=== PATIENT | female | born 1970 | race Hispanic/Latino ===

== ENCOUNTER 2019-04-15 09:21 | Emergency (ER) | payer BC ==
[~2019-04-15] VITALS: Ht 162.6 cm; Wt 69.9 kg
[~2019-04-15 09:21] MED LIST: LOSARTAN POTAS100 MG PO; [UNRECOGNIZED DRUG - OTHER]
--- OUTSIDE RECORDS SUMMARY | 2019-04-15 09:24 | XMS REPORT | CCD ---
Author Author Auto Generated Organization [facility] Address Unknown Phone Unavailable Care Team Providers Care Manager Sourcing Name Role Phone Sebastien Sagastume CP [phone] Allergies, Adverse Reactions, Alerts Substance Reaction Status No Known Allergies Active Problem List Condition Effective Dates Status Ectopic Active Hypertension Active Medications Medication Instructions Start Date End Date Status amlodipine 10 mg 10 mg=1 tabs, Oral, Daily, 0 05/19/2014 06/02/2014 Ordered oral tablet Refill(s) LR 1,000 mL 1,000 mL, IV, 100 mL/hr, start date 05/20/2014 05/20/2014 Discontinued 05/20/14 8:12:00 CDT, For Adults lidocaine 1% 0.5 mL, Injection, Subcutaneous, 05/20/2014 05/20/2014 Canceled injectable solution Once, first dose 05/20/14 9:00:00 CDT, stop date 05/20/14 9:00:00 CDT labetalol 5 mg=1 mL, Injection, IV Push, 05/20/2014 05/20/2014 Discontinued q5min PRN for hypertension, order duration: 4 doses, first dose 05/20/14 9:07:00 CDT, stop date Limited # of times morphine 1 mg, IV Push, q5min PRN for Pain 05/20/2014 05/20/2014 Discontinued Moderate (4-6), order duration: 5 doses, first dose 05/20/14 9:07:00 CDT, stop date Limited # of times morphine 2 mg, IV Push, q5min PRN for pain 05/20/2014 05/20/2014 Completed severe (7-10), order duration: 5 doses, first dose 05/20/14 9:07:00 CDT, stop date Limited # of times albuterol 2.5 mg/3 2.5 mg=3 mL, Soln, NEB, Once, first 05/20/2014 05/20/2014 Ordered mL (0.083%) dose 05/20/14 10:00:00 CDT, stop inhalation solution date 05/20/14 10:00:00 CDT fentaNYL 50 mcg=1 mL, Injection, IV Push, 05/20/2014 05/20/2014 Discontinued q5min PRN for Pain Mild (1-3), order duration: 2 doses, first dose 05/20/14 9:07:00 CDT, stop date Limited # of times Demerol HCl 12.5 mg=0.5 mL, Injection, IV Push, 05/20/2014 05/20/2014 Discontinued q5min PRN for shivers, order duration: 4 doses, first dose 05/20/14 9:07:00 CDT, stop date Limited # of times hydrALAZINE 5 mg=0.25 mL, Injection, IV Push, 05/20/2014 05/20/2014 Discontinued q5min PRN for hypertension, order duration: 4 doses, first dose 05/20/14 9:07:00 CDT, stop date Limited # of times calcium (as 1 tabs, Oral, Daily, 0 Refill(s) 04/26/2014 05/10/2014 Ordered carbonate)-vitamin D 500 mg-200 intl units oral tablet vitamin E 1000 intl 1,000 IntUnit=1 caps, Oral, Daily, 04/26/2014 05/10/2014 Ordered units oral capsule 0 Refill(s) lidocaine 5 mL, Injection, IV, Once, first 05/20/2014 05/20/2014 Completed dose 05/20/14 8:44:00 CDT, stop date 05/20/14 8:44:00 CDT propofol 200 mg=20 mL, Emulsion, IV, Once, 05/20/2014 05/20/2014 Completed first dose 05/20/14 8:44:00 CDT, stop date 05/20/14 8:44:00 CDT dexamethasone 12 mg=3 mL, Injection, IV, Once, 05/20/2014 05/20/2014 Completed first dose 05/20/14 9:23:00 CDT, stop date 05/20/14 9:23:00 CDT Misc Medication 400 mL, Soln-IV, IV, Once, first 05/20/2014 05/20/2014 Completed dose 05/20/14 9:38:00 CDT, stop date 05/20/14 9:38:00 CDT midazolam 4 mg=4 mL, Injection, IV, Once, 05/20/2014 05/20/2014 Completed first dose 05/20/14 8:34:00 CDT, stop date 05/20/14 8:34:00 CDT fentaNYL 100 mcg=2 mL, Injection, IV, Once, 05/20/2014 05/20/2014 Completed first dose 05/20/14 8:34:00 CDT, stop date 05/20/14 8:34:00 CDT rocuronium 20 mg=2 mL, Injection, IV, Once, 05/20/2014 05/20/2014 Completed first dose 05/20/14 8:44:00 CDT, stop date 05/20/14 8:44:00 CDT ondansetron 4 mg=2 mL, Injection, IV, Once, 05/20/2014 05/20/2014 Completed first dose 05/20/14 8:34:00 CDT, stop date 05/20/14 8:34:00 CDT Vital Signs Most recent to oldest [Reference Range]: 1 2 3 Temperature Oral [35.8-37.3 DegC] 36.5 DegC (05/20/2014 08:22:00) Temperature Tympanic [36.6-38.1 DegC] 36.2 DegC *LOW* (05/20/2014 09:30:00) Peripheral Pulse Rate [55-105 bpm] 54 bpm *LOW* (05/20/2014 08:22:00) Heart Rate Monitored [60-100 bpm] 59 bpm *LOW* (05/20/2014 10:00:00) 58 bpm *LOW* (05/20/2014 09:55:00) 59 bpm *LOW* (05/20/2014 09:50:00) Respiratory Rate [12-20] 12 (05/20/2014 10:00:00) 11 *LOW* (05/20/2014 09:55:00) 15 (05/20/2014 09:50:00) SpO2 [90-100 %] 98 % (05/20/2014 10:00:00) 97 % (05/20/2014 09:55:00) 97 % (05/20/2014 09:50:00) Systolic Blood Pressure [110-120 mmHg] 126 mmHg *HI* (05/20/2014 10:00:00) 116 mmHg (05/20/2014 09:55:00) 123 mmHg *HI* (05/20/2014 09:50:00) Diastolic Blood Pressure [65-85 mmHg] 81 mmHg (05/20/2014 10:00:00) 77 mmHg (05/20/2014 09:55:00) 79 mmHg (05/20/2014 09:50:00) Mean Arterial Pressure, Cuff 96 mmHg (05/20/2014 10:00:00) 90 mmHg (05/20/2014 09:55:00) 93.7 mmHg (05/20/2014 09:50:00) Height 162 cm (05/19/2014 18:08:00) Height/Length Dosing 162 cm (05/19/2014 18:08:00) Height Inches 64 in (05/19/2014 18:08:00) Weight 71.7 kg (05/19/2014 18:08:00) Weight Dosing 71.7 kg (05/19/2014 18:08:00) Weight Pounds 158 lb (05/19/2014 18:08:00) Body Mass Index 27.32 kg/m2 (05/19/2014 18:08:00)
--- OUTSIDE RECORDS SUMMARY | 2019-04-15 09:24 | XMS REPORT | Encounter Summary ---
Author Organization Unknown Address [address] [place] [address] Phone [phone] Care Team Providers Care Sample Shoe Inspector And Reworker Name Role Phone Dr. Vamshi Yañez 3 [phone] Jannie Villanueva MD 3 [phone] Reason for Visit Bilateral neck pain; Right shoulder pain Instructions 1. Immunization Fluzone Quad 2018-(PF) 60 mcg(15 mcgx4)/0.5 mL intramuscular syringe 2. Spasm of back muscles cyclobenzaprine 10 mg tablet dexamethasone 4 mg/mL injection solution triamcinolone acetonide 40 mg/mL suspension for injection hydrocodone 10 mg-acetaminophen 325 mg tablet meloxicam 15 mg tablet 3. Benign essential hypertension Discussion Note D/w pt get the TDAP 1 month later. Pt was encouraged to take her Losartan barbi when she gets home. f/u in 12 mth with pcp for routine check up Patient educational handouts: No information available. Plan of Care Reminders Provider Appointments Est Patient on or around 10/31/2018 Ludin Phillips MD Lab None recorded. Referral None recorded. Procedures None recorded. Surgeries None recorded. Imaging None recorded. Medications Name Start Date cyclobenzaprine 10 mg tablet Take 1 tablet twice a day by oral route for 10 days. No alcohol or driving when on this medicine dexamethasone 4 mg/mL injection solution Take 4 mg by injection route for 1 day. hydrocodone 10 mg-acetaminophen 325 mg tablet Take 1 tablet twice a day by oral route for 10 days. no alcohol or driving when on this medicine losartan 100 mg tablet Take 1 tablet every day by oral route. meloxicam 15 mg tablet Take 1 tablet every day by oral route with meals for 30 days. start from Sep triamcinolone acetonide 40 mg/mL suspension for injection Take 40 mg by injection route. Vivelle-Dot 0.1 mg/24 hr transdermal patch Apply 1 patch twice a week by transderm. route for 28 days. Medications Administered Name Date dexamethasone 4 mg/mL injection solution Take 4 mg by injection route for 1 day. 8426-32-43D70:28:00 triamcinolone acetonide 40 mg/mL suspension for injection Take 40 mg by injection route. 9265-29-98K08:29:00 Vitals Height Weight BMI Blood Pressure 5 ft 4 in 168.8 lbs 29 kg/m2 (1) 140/96 mm[Hg] (2) 144/100 mm[Hg] Lab Results None recorded. Allergies Code Code System Name Reaction Severity Status Onset Insect Venom Anaphylaxis Moderate to Severe Active 6901 RxNorm Methylprednisolone Active Problems Name Status Onset Date Source Headache Active 03/11/2018 Abnormal Cervical Papanicolaou Smear Active 03/11/2018 Hormone Replacement Therapy Active 03/11/2018 Hypertensive Disorder Active Procedures Date Name Performed by 08/05/2016 Orthopedic Surgery Information not available 08/05/2015 ENT Surgery (Ear, Nose, Throat) Information not available 08/05/2007 Hysterectomy (Partial) Information not available 08/05/2004 Caesarean Section Information not available 08/05/2004 Orthopedic Surgery Information not available 08/05/2003 Tubal Ligation Information not available 08/05/1988 Gastrointestinal Surgery Information not available Vaccine List Vaccine Type influenza, injectable, quadrivalent, preservative free 09/03/20180.5 mL Social History Smoking Status Never Smoker Past Encounters 09/03/2018 Immunization; Spasm of Back Muscles; Benign Essential Hypertension Ludin Phillips MD: [address] [place] [phone], Ph. History of Present Illness Note:Here with because she woke up with neck pain & its radiating to Rt shoulder & Pain down her back . no weakness or numbness in hands or legs , no incontinence of bowel or bladder, moved things from storage uit on , she was c/o soreness all over on , Took 5 aleve yesterday - , pain /10 , no help with aleve<div>Not taking any BP meds x 2 days . no fever or chills</div><div>
</div> Review of Systems:ROS as noted in the HPI Review of Systems None recorded. Physical Exam General Adult Exam (Female) Reported By: Patient Constitutional: General Appearance: well-developed; bmi - 29. Level of Distress: moderate distress. Ambulation: ambulating normally Psychiatric: Insight: good judgement. Mental Status: active and alert, normal mood, normal affect. Orientation: to time, to place, to person Head: Head: normocephalic, atraumatic Eyes: Lids and Conjunctivae: non-injected, no discharge, no pallor. Pupils: PERRLA. Corneas: grossly intact. EOM: EOMI. Lens: clear. Sclerae: non-icteric ENMT: Ears: no lesions on external ear, EACs clear, TMs clear. Hearing: no hearing loss. Nose: no lesions on external nose, nares patent, no septal deviation, nasal passages clear, no sinus tenderness, no nasal discharge. Lips, Teeth, and Gums: no mouth or lip ulcers, no bleeding gums, normal dentition. Oropharynx: moist mucous membranes, no erythema, no exudates, tonsils not enlarged Neck: Neck: supple, trachea midline, no masses, FROM. Lymph Nodes: no cervical LAD, no supraclavicular LAD, no axillary LAD. Thyroid: no enlargement, non- tender, no nodules Lungs: Respiratory effort: no dyspnea. Auscultation: breath sounds normal, good air movement, CTA except as noted, no wheezing, no rales/crackles, no rhonchi Cardiovascular: Heart Auscultation: RRR, normal S1, normal S2, no murmurs, no rubs, no gallops Abdomen: Bowel Sounds: normal. Inspection and Palpation: soft, no tenderness, no guarding, no rebound tenderness, no masses, no CVA tenderness. Liver: non- tender, no hepatomegaly Musculoskeletal:: Motor Strength and Tone: normal motor strength, normal tone. Joints, Bones, and Muscles: normal movement of all extremities, no bony abnormalities, no contractures, no malalignment, no tenderness. Extremities: no cyanosis, no edema, no varicosities Neurologic: Gait and Station: normal gait, normal station; walking stiffly & straight. Cranial Nerves: grossly intact. Sensation: grossly intact. Reflexes: DTRs 2+ bilaterally throughout; strength - 4+/5 in evita upper extremities due to pain & 5/5 in both lower extremities. Coordination and Cerebellum: no tremor Skin: Inspection and palpation: no rash, no lesions, no abnormal nevi, good turgor, no jaundice. Nails: normal Back: Thoracolumbar Appearance: normal curvature; spasm of evita suprascapular , evita interscapular , evita paravertebral in thoracic & evita lumbar paravertebral muscle spasm + flrxion 15 degrees , ext 5 degrees evita lat flexion 15 degrees with discomfort limiting her motion Notes: Very stiff & sitting up right with minimal movement in her neck as her upper back &spine hurts.
--- OUTSIDE RECORDS SUMMARY | 2019-04-15 09:24 | XMS REPORT | Encounter Summary ---
Author Organization Unknown Address [address] [place] [address] Phone [phone] Reason for Visit Medical Complaint Instructions 1. Streptococcal sore throat rapid strep group A, throat amoxicillin 875 mg tablet strep throat: care instructions 2. Acute upper respiratory infection Bromfed DM 2 mg-30 mg-10 mg/5 mL syrup fluticasone 50 mcg/actuation nasal spray,suspension upper respiratory infection (cold): care instructions Discussion Note: None recorded. Plan of Care Patient Instructions Please drink plenty of fluids, rest, good hand washing, cover your mouth while coughing and sneezing. Change out yourtoothbrush tomorrow or when you start to feel better. Try warm salt water gargles, throat lozanges, soups ortea with honey and/or lemon juice to soothe the throat.Take ibuprofen or tylenol every 6 hours as needed for fever and aches. Please read all the side effects of the medications, if you develop any side effects immediately stop the medication and please contact your PCP/UC/ER or [facility] or call 911. Patient verbalizes understanding and agrees to the plan. Reminders Provider Appointments None recorded. Lab Rapid Strep Group a, Throat 04/25/2016 [facility] Referral None recorded. Procedures None recorded. Surgeries None recorded. Imaging None recorded. Medications Name Start Date acetaminophen 300 mg-codeine 30 mg tablet amlodipine 5 mg tablet amoxicillin 875 mg tablet Take 1 tablet twice a day by oral route with meals for 10 days. Bromfed DM 2 mg-30 mg-10 mg/5 mL syrup Take 10 mL every 8 hours by oral route as needed for cough. [id number]-xbnsetdlwqoip-bdnqahqd 50 mg-325 mg-40 mg tablet ciprofloxacin 250 mg tablet clobetasol 0.05 % topical cream EpiPen 2-Valentín 0.3 mg/0.3 mL injection, auto-injector fluticasone 50 mcg/actuation nasal spray,suspension Inhale 2 sprays to each nostrils once a day.. Soledad 08/24 (21) 1 mg-20 mcg tablet ibuprofen 600 mg tablet prednisone 50 mg tablet propranolol 60 mg tablet zolpidem 10 mg tablet Medications Administered None recorded. Vitals Height Weight BMI Blood Pressure 5 ft 4 in 160 lbs 27.5 124/82 Lab Results Date Name Result Description Value Range Status Rapid Strep Group a, Throat Result positive Swab Location Left and Right tonsillar pillars Allergies Name Reaction Severity Onset NKDA Problems Name Status Onset Date Source Streptococcal Sore Throat Active Encounter Acute Upper Respiratory Infection Active Encounter Procedures Date Name Performed by Cholecystectomy Information not available Hysterectomy Information not available Vaccine List Vaccine Type influenza, seasonal, injectable 05/04/2015 Social History Smoking Status Never Smoker Past Encounters 04/25/2016 Streptococcal Sore Throat; Acute Upper Respiratory Infection Catie Amaya [facility]: [address] [facility], [place] [address], Ph. History of Present Illness [id number] Reported By: Patient HPI: Location: head/sinuses, throat. Quality: productive cough, sore throat, nasal/sinus congestion, dry cough. Duration: 2days. Severity: moderate. Onset/Timing: sudden. Context: no sick contacts, no foreign travel, non-smoker. Modifying factors: OTC medication. Associated Symptoms: no sputum production, no shortness of breath, no wheezing, no change in number of pillows needed to sleep at night, no sweats, no significant weight gain, no significant weight loss, no morning cough, no sore throat, no vomiting, no diarrhea, no rash, no nausea Notes: Pt also reports low grade fever and right ear pain. Review of Systems Basic Reported By: Patient Constitutional: Constitutional: fever Eyes: Eyes: no eye complaints Mmdl-Rsju-Ylldg-Throat: Ears: ear pain. Nose: nose/sinus problems. Mouth/Throat: no bleeding gums, no mouth complaints, no teeth problems, sore throat Cardiovascular: Cardiovascular: no chest pain, no shortness of breath, no known heart murmur Respiratory: Respiratory: no wheezing, no shortness of breath, cough Gastrointestinal: Gastrointestinal: no abdominal pain, no vomiting / diarrhea Genitourinary: Genitourinary: no urinary complaints, no discharge Musculoskeletal: Musculoskeletal: no muscle weakness, no arthralgias/joint pain, no back pain, muscle aches Skin: Skin: no abnormal / changing mole, no jaundice, no rashes Neurologic: Neurologic: no loss of consciousness, no weakness, no numbness, no seizures, no dizziness, headache Physical Exam Adult Basic, Adult Female Complete Constitutional: General Appearance: healthy-appearing, well-nourished, well-developed. Level of Distress: NAD. Ambulation: ambulating normally Psychiatric: Mental Status: active and alert. Orientation: to time, to place, to person Eyes: Lids and Conjunctivae: non-injected, no discharge, no pallor. Pupils: PERRLA. EOM: EOMI. Lens: clear. Sclerae: non-icteric Ymw-Eaup-Jladz-Throat: Ears: no lesions on external ear, no outer ear tenderness, EACs clear, TMs clear. Hearing: no hearing loss. Nose: no lesions on external nose, nares patent, no septal deviation, nasal passages clear, no sinus tenderness, nasal discharge--rhinorrhea, post nasal drip. Lips, Teeth, and Gums: no mouth or lip ulcers, no bleeding gums, normal dentition. Oropharynx: moist mucous membranes, erythema, exudates, tonsils enlarged 2+ Neck: Neck: supple. Lymph Nodes: no cervical LAD Lungs: Respiratory effort: no dyspnea, no tachypnea. Auscultation: breath sounds normal Cardiovascular: Heart Auscultation: RRR, no murmurs Neurologic: Gait and Station: normal gait Skin: Inspection and palpation: no rash
--- OUTSIDE RECORDS SUMMARY | 2019-04-15 09:24 | XMS REPORT ---
Author Author [facility] Address Unknown Phone Unavailable Care Team Providers Care Side Laster Staple Name Role Phone Tameka CHAPIN Unavailable Unavailable Problems This patient has no known problems. Allergies, Adverse Reactions, Alerts This patient has no known allergies or adverse reactions. Medications This patient has no known medications. Results Test Description Test Time Test Comments Text Results Atomic Results Result Comments SCR MAMM BILATERAL PETER CAD DIGITAL 2018-11-27 12:55:08 - SCR MAMM BILATERAL PETER CAD DIGITALBILATERAL DIGITAL SCREENING MAMMOGRAM 3D/2D WITH CAD: 11/20/2018CLINICAL: Asymptomatic. Digital breast tomosynthesis was performed in addition to routine CC and MLO views. Current mammographic images were evaluated by either a K[employer] Audio M-Vu or a Lightning Gaming ImageChecker CAD (computer aided detection system). Comparison is made to exam dated 02/26/2017 mammogram - [facility] [place]. There are scattered fibroglandular tissues in both breasts. No suspicious mass, architectural distortion, malignant type calcification, or lymph node abnormality detected. Breast architecture is stable compared to prior exams.IMPRESSION: NEGATIVEThere is no mammographic evidence of malignancy. Resume annual screening mammography in one year. Mal Charles M.D. ss/penrad:11/27/2018 12:55:08 Salesperson Art Objects: [employer] [place], [facility]-FWletter sent: BIRADS 1-2 Normal Mammogram BI-RADS: 1 Negative KNEE RIGHT THREE VIEWS [place] [address] Patient Name: GABRIEL GOLDBERG MR #: [id number] : 1970 Age/Sex: 46/F Req #: [id number] Adm Physician: Ordered by: GONZALEZ CHAPIN MD Report #: [id number] Location: ER Room/Bed: Procedure: [id number] DX/KNEE RIGHT THREE VIEWS Exam Date: 05/26/17 Exam Time: 909 REPORT STATUS: Signed EXAMINATION: KNEE RIGHT THREE VIEWS 05/26/2017 9:05 AM COMPARISON: None INDICATION: Pop in knee while walking. Right knee pain. DISCUSSION: 3 views of the right knee (AP, lateral, and oblique) No fracture or dislocation. Mild sharpening of the tibial spines. Mild narrowing of the medial and patellofemoral joint space. 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 No acute abnormality. Velma Nelson MD Signed by: Dr. Velma Nelson MRicardo on 05/26/2017 10:39 AM Dictated By: VELMA NELSON MD 1039 Transcribed By: SUSHMA on 05/26/17 1039 COPY TO: GONZALEZ CHAPIN MD
--- OUTSIDE RECORDS SUMMARY | 2019-04-15 09:24 | XMS REPORT | Encounter Summary ---
Author Organization Unknown Address [address] [place] [address] Phone [phone] Care Team Providers Care Dry Roller Name Role Phone Dr. Jannie Villanueva 3 [phone] Jannie Villanueva MD 3 [phone] Reason for Visit Hypertensive disorder; Hormone replacement therapy Instructions 1. Hypertensive disorder lisinopril 40 mg tablet 2. Hormone replacement therapy 3. Body mass index 25-29 - overweight learning about healthy weight 4. Immunization Adacel (Tdap Adolesn/Adult)(PF)2 Lf-(2.5-5-3-5)-5 Lf/0.5 mL IM syringe 5. Screening for malignant neoplasm of colon colonoscopy referral - PLEASE FAX NOTES TO [phone]. 6. Screening mammography MAMMO, screening, digital, bilateral - PLEASE CALL PATIENT AND SCHEDULE HER AN APPOINTMENT. PLEASE FAX RESULTS TO [phone]. mammogram: about this test 7. Insomnia zolpidem 10 mg tablet Discussion Note: None recorded. Plan of Care Reminders Provider Appointments Est Patient 12/23/2018 9:30AM Jannie Villanueva MD Lab None recorded. Referral Colonoscopy Referral 10/28/2018 Lindsay Ellis MD Procedures None recorded. Surgeries None recorded. Imaging MAMMO, Screening, Digital, Bilateral 10/28/2018 [facility] Medications Name Start Date lisinopril 40 mg tablet Take 1 tablet every day by oral route. losartan 100 mg tablet Take 1 tablet every day by oral route. Nexium Vivelle-Dot 0.1 mg/24 hr transdermal patch Apply 1 patch twice a week by transderm. route for 28 days. zolpidem 10 mg tablet Take 1 tablet every day by oral route as needed. Medications Administered None recorded. Vitals Height Weight BMI Blood Pressure 5 ft 4 in 167 lbs 28.7 kg/m2 (1) 144/96 mm[Hg] (2) 140/94 mm[Hg] Lab Results None recorded. Allergies Code Code System Name Reaction Severity Status Onset Insect Venom Anaphylaxis Moderate to Severe Active 1249 RxNorm Methylprednisolone Active Problems Name Status Onset [...] available 08/05/1988 Gastrointestinal Surgery Information not available 10/28/2018 MAMMO, Screening, Digital, Bilateral [facility] [address] [facility] [address] [place] [address] (Work Place) Vaccine List Vaccine Type influenza, injectable, quadrivalent, preservative free 09/03/20180.5 mL Tdap 10/28/20180.5 mL Social History Smoking Status Never Smoker Past Encounters 10/28/2018 Hypertensive Disorder; Hormone Replacement Therapy; Body Mass Index 25-29 - Overweight; Immunization; Screening for Malignant Neoplasm of Colon; Screening Mammography; Insomnia Jannie Villanueva MD: [address] [place] [address], Ph. History of Present Illness Note:48yo female presents for three month follow-up visit. Here today to update referrals for mammogram & colonoscopy/GI. Pt notes that she didn't have the time to leave work to get these done previously, but resigned from her current job last week & now would like to get caught up.<div>Would like to see GI & amp; discuss colonoscopy & possible upper endoscopy. Has notice a strange 'gurgling' sound in throat unrelated to eating. Occurs intermittently for past 3wks. Pt also has persistent heartburn despite using OTC Nexium 2-3x/wk. No nausea, vomiting, blood in stool. Some constipation. Had colonoscopy about 2011. Mat GF with colon cancer.</div><div>
</div><div>PMHx:
</div><div> Hypertension - on medication for past 5 yrs.</div><div>ERT - Started Vivelle Dot Patch about 12/2017 from MD Meng castellanose. Pt had partial hysterectomy at age 37 for fibroids & ovarian cyst. Only has cervix & followed by gyne at [facility] annually - last visit December 2017. Was never on HRT for 10yrs following hysterectomy. Spent years trying to resolve menopausal symptoms with natural remedies, until started on Vivelle last December 2017.
</div><div>ASCUS - atypical squamous cells of cervix.
</div><div>Headaches - saw neurologist 4yrs ago for 'cyst in brain'. Awaiting appt with Dr. Jazzy García, neurology for headaches.

</div><div>
</div><div>Bradycardia - was seen by cardiology in past.
</div><div>
</div><div>NKDA, but highly allergic to ant bites (anaphylaxis - carries EpiPen).
</div><div>Nonsmoker. Last mammo 03/05/17. Had colonoscopy in 2011.
</div><div>
</div> Review of Systems:ROS as noted in the HPI Review of Systems Comprehensive General Adult ROS Reported By: Patient Constitutional: Constitutional: no fever Eyes: Eyes: no vision change ENMT: Ears: difficulty hearing Cardiovascular: Cardiovascular: no chest pain Respiratory: Respiratory: no cough, no wheezing, no shortness of breath Gastrointestinal: Gastrointestinal: no abdominal pain, constipation, dyspepsia, GERD Neurologic: Neurologic: no loss of consciousness, frequent or severe headaches Psychiatric: Psych: no depression, no alcohol abuse, no anxiety, no suicidal thoughts Physical Exam Brief Abdominal Pain Exam Reported By: Patient Constitutional: General Appearance: well-developed, well-nourished, healthy-appearing, alert, oriented, NAD, mucous membranes moist Cardiovascular: Heart Auscultation: S1 present, S2 present, no murmurs, no click Lungs: Lungs: clear to auscultation bilaterally, no wheezing, no crackles Abdomen: Inspection and Palpation: soft, bowel sounds 4 quadrants, no tenderness, non-distended
--- OUTSIDE RECORDS SUMMARY | 2019-04-15 09:24 | XMS REPORT | Encounter Summary ---
Author Organization Unknown Address [address] [place] [address] Phone [phone] Care Team Providers Care Bindery Helper Name Role Phone Jannie Villanueva MD 3 [phone] Reason for Visit Medical Complaint Instructions 1. Viral upper respiratory tract infection rapid flu (A+B) Medrol ([place]) 4 mg tablets in a dose pack 2. Cough cough: care instructions benzonatate 100 mg capsule 3. Finding of fluid behind tympanic membrane 4. Posterior rhinorrhea 5. Sore throat symptom sore throat: care instructions rapid strep group A, throat Lidocaine Viscous 2 % mucosal solution 6. Body mass index 25-29 - overweight body mass index: care instructions Discussion Note explained to patient regarding viral vs bacterial infection. Encouraged adequate hydration and fluids. Discussed hand hygiene and CDC guidelines for viral infections. If new, worsening or persistance of symptoms follow up with PCP. If SOB, wheezing, fever, difficulty swallowing or abdominal pain go to ED. Pt verbalizes understanding and agrees with plan of care. May alternate Motrin and Tylenol for fever, pain or discomfort as needed per label instructions. Plan of Care Reminders Provider Appointments None recorded. Lab Rapid Strep Group a, Throat 04/15/2018 [facility] Rapid Flu (A+B) 04/15/2018 [facility] Referral None recorded. Procedures None recorded. Surgeries None recorded. Imaging None recorded. Medications Name Start Date benzonatate 100 mg capsule Take 2 capsules 3 times a day by oral route as needed for 10 days. hydrochlorothiazide 12.5 mg capsule Lidocaine Viscous 2 % mucosal solution Take 15 mL every 3 hours by oral route as needed for 5 days. losartan 100 mg tablet TAKE ONE (1) TABLET(S) BY MOUTH ONCE A DAY. Medrol ([place]) 4 mg tablets in a dose pack take as directed Vivelle-Dot 0.1 mg/24 hr transdermal patch 04/15/2018 Medications Administered None recorded. Vitals Height Weight BMI Blood Pressure 5 ft 4 in 166 lbs 28.5 kg/m2 120/78 mm[Hg] Lab Results Date Name Specimen Result Interpretation Description Value Range Status Address Rapid Flu (A+B) Influenza a negative [facility]: [facility] Influenza B negative [facility]: [facility] Rapid Strep Group a, Throat Result negative [facility]: [facility] Swab Location Left and Right tonsillar pillars [facility]: [facility] Allergies Code Code System Name Reaction Severity Status Onset NKDA Problems Name Status Onset Date Source Body Mass Index 25-29 - Overweight Active 04/15/2018 Streptococcal Sore Throat Active Encounter Acute Upper Respiratory Infection Active Encounter Impetigo Active Encounter Procedures Date Name Performed by Repair of Nasal Septum Information not available Cholecystectomy Information not available Hysterectomy Information not available Vaccine List Vaccine Type influenza, injectable, quadrivalent 04/05/2017 influenza, seasonal, injectable 05/05/2015 influenza, unspecified formulation 05/05/2016 Tdap 05/21/20170.5 mL Social History Smoking Status Never Smoker Past Encounters 04/15/2018 Viral Upper Respiratory Tract Infection; Cough; Finding of Fluid behind Tympanic Membrane; Posterior Rhinorrhea; Sore Throat Symptom; Body Mass Index 25-29 - Overweight Willian Faye PA-C: [address] [place] [address], Ph. History of Present Illness Cough Reported By: Patient HPI: Location: chest, nasal/sinus. Quality: productive cough, sore throat, colored phlegm, congested. Duration: 2 days. Severity: mild. Onset/Timing: sudden. Context: no foreign travel, non-smoker, sick contact. Modifying factors: OTC medication. Associated Symptoms: no shortness of breath, no wheezing, no sweats, no significant weight gain, no significant weight loss, no morning cough, no vomiting, no diarrhea, no rash, no nausea, no headache, chest pain, yellow sputum, sore throat, fever/chills, muscle aches Review of Systems Basic Reported By: Patient Constitutional: Constitutional: fever; subjective Eyes: Eyes: no eye complaints Vfel-Oijv-Fbtap-Throat: Ears: ear pain. Nose: nose/sinus problems. Mouth/Throat: no bleeding gums, no mouth complaints, no teeth problems, sore throat Cardiovascular: Cardiovascular: no chest pain, no shortness of breath, no known heart murmur Respiratory: Respiratory: cough, wheezing, shortness of breath Gastrointestinal: Gastrointestinal: no abdominal pain, no vomiting / diarrhea Genitourinary: Genitourinary: no urinary complaints, no discharge Musculoskeletal: Musculoskeletal: no muscle weakness, no arthralgias/joint pain, no back pain, muscle aches Skin: Skin: no abnormal / changing mole, no jaundice, no rashes Neurologic: Neurologic: no loss of consciousness, no weakness, no numbness, no seizures, no dizziness, no headaches Physical Exam Adult Basic, Adult Female Complete Reported By: Patient Constitutional: General Appearance: overweight. Level of Distress: NAD. Ambulation: ambulating normally Psychiatric: Mental Status: active and alert. Orientation: to time, to place, to person Eyes: Lids and Conjunctivae: non-injected, no discharge, no pallor. Pupils: PERRLA. EOM: EOMI. Sclerae: non-icteric. Vision: acuity grossly intact Dbf-Pxro-Raitx-Throat: Ears: no lesions on external ear, no outer ear tenderness, EACs clear, TMs clear, middle ear fluid; left. Hearing: no hearing loss. Nose: no lesions on external nose, nares patent, no septal deviation, nasal passages clear, no sinus tenderness, nasal discharge, nasal discharge--purulent, nasal discharge--rhinorrhea, post nasal drip. Lips, Teeth, and Gums: no mouth or lip ulcers, no bleeding gums, normal dentition. Oropharynx: moist mucous membranes, no erythema, no exudates, tonsils not enlarged; cobblestoning Neck: Neck: supple, trachea midline, no masses, FROM. Lymph Nodes: no cervical LAD, no supraclavicular LAD Lungs: Respiratory effort: no dyspnea, no tachypnea, no use of accessory muscles, no intercostal retractions. Auscultation: breath sounds normal Cardiovascular: Heart Auscultation: RRR, no murmurs
--- OUTSIDE RECORDS SUMMARY | 2019-04-15 09:24 | XMS REPORT | Encounter Summary ---
Author Organization Unknown Address [address] [place] [address] Phone [phone] Reason for Visit Immunization Instructions 1. Immunization Adacel (Tdap Adolesn/Adult)(PF)2Lf-(2.5-5-3-5mcg)-5 Lf/0.5 mL IM susp 2. Counseling Discussion Note: None recorded. Patient educational handouts: No information available. Plan of Care Patient Instructions refer to vis handout with any questions regarding vaccine as discussed. follow up pcp prn Reminders Provider Appointments None recorded. Lab None recorded. Referral None recorded. Procedures None recorded. Surgeries None recorded. Imaging None recorded. Medications Name Start Date atorvastatin 10 mg tablet Contrave 8 mg-90 mg tablet,extended release diazepam 5 mg tablet TAKE ONE (1) TABLET(S) BY MOUTH EVERY EIGHT HOURS NEEDED FOR MUSCLE SPASMS. diethylpropion ER 75 mg tablet,extended release TAKE ONE (1) TABLET(S) BY MOUTH MID-MORNING. losartan 100 mg tablet TAKE ONE (1) TABLET(S) BY MOUTH ONCE A DAY. terconazole 0.4 % vaginal cream tramadol 50 mg tablet TAKE ONE (1) TO TWO (2) TABLET(S) BY MOUTH EVERY SIX HOURS NEEDED FOR PAIN. Xulane 150 mcg-35 mcg/24 hr transdermal patch Medications Administered None recorded. Vitals Height 5 ft 4 in Lab Results None recorded. Allergies Code Code [...] History Smoking Status Never Smoker Past Encounters 05/21/2017 Immunization; Counseling MARGARETH Velazco-C: [address] [place] [address], Ph. History of Present Illness Immunization Reported By: Patient HPI: Immunization Request (normal) no symptoms. Immunization eligibility questions No vaccines in last month, No reaction to previous vaccines:, No Known Allergies Review of Systems Basic Reported By: Patient Constitutional: Constitutional: no fever Eyes: Eyes: no eye complaints Kufu-Ihtp-Qzhlh-Throat: Ears: no ear complaints. Nose: no nose/sinus problems. Mouth/Throat: no sore throat, no bleeding gums, no mouth complaints, no teeth problems Cardiovascular: Cardiovascular: no chest pain, no shortness of breath, no known heart murmur Respiratory: Respiratory: no cough, no wheezing, no shortness of breath Gastrointestinal: Gastrointestinal: no abdominal pain, no vomiting / diarrhea Genitourinary: Genitourinary: no urinary complaints, no discharge Musculoskeletal: Musculoskeletal: no muscle aches, no muscle weakness, no arthralgias/joint pain, no back pain Skin: Skin: no abnormal / changing mole, no jaundice, no rashes Neurologic: Neurologic: no loss of consciousness, no weakness, no numbness, no seizures, no dizziness, no headaches Physical Exam Immunization Reported By: Patient General Appearance: General: well-developed, well-nourished, no acute distress
--- OUTSIDE RECORDS SUMMARY | 2019-04-15 09:24 | XMS REPORT | Encounter Summary ---
Author Organization Unknown Address [address] [place] [address] Phone [phone] Reason for Visit Medical Complaint Instructions 1. Upper respiratory infection upper respiratory infection (cold): care instructions Bromfed DM 2 mg-30 mg-10 mg/5 mL syrup rapid flu (A+B) 2. Acute tonsillitis tonsillitis: care instructions Lidocaine Viscous 2 % mucosal solution rapid strep group A, throat Discussion Note Pt is in NAD; Verbalizes understanding of all instructions with no questions at this time. Plan of Care Patient Instructions Alternate with Ibuprofen and acetaminophen every 4hrs as needed for fever/headache Proper hydration and rest. Return to school/work of fever free for 24 hrs. Gargle and spit viscous lidocaine as needed for sore throat as directed. Take bromfed for cough as directed. Take medications as prescribed. Return to clinic or f/u with your PCP within 2-3 days if symptoms worsen as discussed. In case of emergency call 911 or go to nearest ER. Reminders Provider Appointments None recorded. Lab Rapid Flu (A+B) 10/31/2016 [facility] Rapid Strep Group a, Throat 10/31/2016 [facility] Referral None recorded. Procedures None recorded. Surgeries None recorded. Imaging None recorded. Medications Name Start Date Bromfed DM 2 mg-30 mg-10 mg/5 mL syrup Take 10 mL every 8 hours by oral route as needed for cough. bupropion HCl XL 150 mg 24 hr tablet, extended release TAKE ONE (1) TABLET(S) BY MOUTH EVERY 24 HOURS. Lidocaine Viscous 2 % mucosal solution Take 15 mL every 3 hours by oral route as needed. phentermine 37.5 mg tablet TAKE ONE (1) TABLET(S) BY MOUTH EVERY MORNING. triamcinolone acetonide 0.1 % topical cream Medications Administered None recorded. Vitals Height Weight BMI Blood Pressure 5 ft 4 in 160 lbs 27.5 142/90 Lab Results Date Name Result Description Value Range Status Rapid Strep Group a, Throat Result negative Swab Location Left and Right tonsillar pillars Rapid Flu (A+B) Influenza a negative Influenza B negative Allergies Name Reaction Severity Onset NKDA Problems Name Status Onset Date Source Streptococcal Sore Throat Active Encounter Acute Upper Respiratory Infection Active Encounter Impetigo Active Encounter Procedures Date Name Performed by Cholecystectomy Information not available Hysterectomy Information not available Vaccine List Vaccine Type influenza, seasonal, injectable 05/04/2015 influenza, unspecified formulation 05/04/2016 Social History Smoking Status Never Smoker Past Encounters 10/31/2016 Upper Respiratory Infection; Acute Tonsillitis Emily Gonzalez, [facility]: [address] [place] [address], Ph. History of Present Illness Gncyjpi-Tixyr-Gax Reported By: Patient HPI: Duration: 3 days. Severity: subjective temperature. Context: no ill contacts, no tick/insect bites, no recent travel, no new medications. Associated Symptoms: fever/chills, muscle aches, cold symptoms, cough; sore throat Review of Systems:ROS as noted in the HPI Review of Systems Basic Reported By: Patient Physical Exam Adult Basic, Adult Female Complete Reported By: Patient Constitutional: General Appearance: healthy-appearing, well-nourished, well-developed. Level of Distress: NAD. Ambulation: ambulating normally Psychiatric: Mental Status: active and alert. Orientation: to time, to place, to person Ytk-Nknj-Eqblj-Throat: Ears: no lesions on external ear, no outer ear tenderness, EACs clear, TMs clear. Hearing: no hearing loss. Nose: no lesions on external nose, nares patent, no septal deviation, nasal passages clear, no sinus tenderness, no nasal discharge. Lips, Teeth, and Gums: no mouth or lip ulcers, no bleeding gums, normal dentition. Oropharynx: moist mucous membranes, no exudates, erythema, tonsils enlarged 1+ Neck: Lymph Nodes: anterior cervical LAD Lungs: Respiratory effort: no dyspnea, no tachypnea, no use of accessory muscles, no intercostal retractions. Auscultation: breath sounds normal Cardiovascular: Heart Auscultation: RRR, no murmurs Neurologic: Gait and Station: normal gait, normal station
--- OUTSIDE RECORDS SUMMARY | 2019-04-15 09:24 | XMS REPORT | Encounter Summary ---
Author Organization Unknown Address [address] [place] [address] Phone [phone] Reason for Visit Medical Complaint Instructions 1. Impetigo mupirocin 2 % topical ointment Discussion Note: None recorded. Patient educational handouts: No information available. Plan of Care Patient Instructions Avoid swimming while having infection. Ok to wash with soap and water. Ok to shower but no bathing. Avoid sharing towels and contact sport. Do not pick lesions/scab. If no improvement in 3 days, call clinic or see pcp. Reminders Provider Appointments None recorded. Lab None recorded. Referral None recorded. Procedures None recorded. Surgeries None recorded. Imaging None recorded. Medications Name Start Date amlodipine 5 mg tablet mupirocin 2 % topical ointment APPLY A SMALL AMOUNT TO THE AFFECTED AREA BY TOPICAL ROUTE 3 TIMES PER DAY x 10 DAYS Medications Administered None recorded. Vitals Height Weight BMI Blood Pressure 5 ft 4 in 158 lbs 27.1 130/80 Lab Results None recorded. Allergies Name Reaction Severity Onset NKDA Problems Name Status Onset Date Source Streptococcal Sore Throat Active Encounter Acute Upper Respiratory Infection Active Encounter Impetigo Active Encounter Procedures Date Name Performed by Cholecystectomy Information not available Hysterectomy Information not available Vaccine List Vaccine Type influenza, seasonal, injectable 05/04/2015 Social History Smoking Status Never Smoker Past Encounters 07/20/2016 Impetigo Na Omalley, HR ASSISTANT: [address] [place] [address], Ph. History of Present Illness Nwsl-Schaqlx-Bbxis-Skin Lesion-Bite 1 Reported By: Patient HPI: Location: legs. Quality: multiple. Severity: mild. Duration: has noted for <1 week. Onset/Timing: abrupt onset. Context: no new detergents or skin products, no one else with similar rash, no sting or bite. Aggravating factors: nothing makes it worse. Alleviating factors: nothing gives relief. Associated Symptoms: no fever/chills, no muscle aches, no headache, no cold symptoms, no nausea, no vomiting, no diarrhea, no urinary symptoms Review of Systems Basic Reported By: Patient Constitutional: Constitutional: no fever Eyes: Eyes: no eye complaints Frzw-Cjmv-Mhbss-Throat: Ears: no ear complaints. Nose: no nose/sinus [...] no abnormal / changing mole, no jaundice, rash; tender Neurologic: Neurologic: no loss of consciousness, no weakness, no numbness, no seizures, no dizziness, no headaches Physical Exam Adult Basic, Adult Female Complete Constitutional: General Appearance: healthy-appearing, well-nourished, well-developed. Level of Distress: NAD. Ambulation: ambulating normally Psychiatric: Mental Status: active and alert. Orientation: to time, to place, to person Skin: Inspection and palpation: lesion
--- OUTSIDE RECORDS SUMMARY | 2019-04-15 09:24 | XMS REPORT | Continuity of Care Document ---
Author Author [employer] Address Unknown Phone Unavailable Care Team Providers Care Platemaker Name Role Phone [employer] Unavailable Unavailable Problems Problem Status Onset Date Classification Date Reported Comments Source Sore throat symptom 04/15/2018 Diagnosis 04/15/2018 [facility] Posterior rhinorrhea 04/15/2018 Diagnosis 04/15/2018 [facility] Finding of fluid behind tympanic membrane 04/15/2018 Diagnosis 04/15/2018 [facility] Cough 04/15/2018 Diagnosis 04/15/2018 [facility] Viral upper respiratory tract infection 04/15/2018 Diagnosis 04/15/2018 [facility] Body mass index 25-29 - overweight 04/15/2018 Problem 04/15/2018 [facility] Immunization 05/21/2017 Diagnosis 05/21/2017 [facility] Counseling 05/21/2017 Diagnosis 05/21/2017 [facility] Upper respiratory infection 10/31/2016 Diagnosis 10/31/2016 [facility] Acute tonsillitis 10/31/2016 Diagnosis 10/31/2016 [facility] Ectopic (disorder) Active Problem 05/22/2014 [facility] Hypertensive disorder, systemic arterial (disorder) Active Problem 05/22/2014 [facility] Streptococcal sore throat Problem 04/15/2018 [facility] Acute upper respiratory infection Problem 04/15/2018 [facility] Impetigo Problem 04/15/2018 [facility] Medications Medication Details Route Status Patient Instructions Ordering Provider Order Date Source 84 HR Estradiol 0.25951 MG/HR Transdermal System [Vivelle] Vivelle-Dot 0.1 mg/24 hr transdermal patch Active 04/15/2018 [facility] albuterol 2.5 mg/3 mL (0.083%) inhalation solution 2.5 mg=3 mL, Soln, NEB, Once, first dose 05/20/14 10:00:00 CDT, stop date 05/20/14 10:00:00 CDT Inactive [place] 05/20/2014 [facility] Misc Medication 400 mL, Soln-IV, IV, Once, first dose 05/20/14 9:38:00 CDT, stop date 05/20/14 9:38:00 CDT Inactive [place] 05/20/2014 [facility] dexamethasone 12 mg=3 mL, Injection, IV, Once, first dose 05/20/14 9:23:00 CDT, stop date 05/20/14 9:23:00 CDT Inactive [place] 05/20/2014 [facility] labetalol 5 mg=1 mL, Injection, IV Push, q5min PRN for hypertension, order duration: 4 doses, first dose 05/20/14 9:07:00 CDT, stop date Limited # of times Inactive [place] 05/20/2014 [facility] morphine 1 mg, IV Push, q5min PRN for Pain Moderate (4- 6), order duration: 5 doses, first dose 05/20/14 9:07:00 CDT, stop date Limited # of times Inactive [place] 05/20/2014 [facility] fentaNYL 50 mcg=1 mL, Injection, IV Push, q5min PRN for Pain Mild (1-3), order duration: 2 doses, first dose 05/20/14 9:07:00 CDT, stop date Limited # of times Inactive [place] 05/20/2014 [facility] Demerol HCl 12.5 mg=0.5 mL, Injection, IV Push, q5min PRN for shivers, order duration: 4 doses, first dose 05/20/14 9:07:00 CDT, stop date Limited # of times Inactive [place] 05/20/2014 [facility] hydrALAZINE 5 mg=0.25 mL, Injection, IV Push, q5min PRN for hypertension, order duration: 4 doses, first dose 05/20/14 9:07:00 CDT, stop date Limited # of times Inactive [place] 05/20/2014 [facility] lidocaine 1% injectable solution 0.5 mL, Injection, Subcutaneous, Once, first dose 05/20/14 9:00:00 CDT, stop date 05/20/14 9:00:00 CDT Inactive [place] 05/20/2014 [facility] lidocaine 5 mL, Injection, IV, Once, first dose 05/20/14 8:44:00 CDT, stop date 05/20/14 8:44:00 CDT Inactive [place] 05/20/2014 [facility] propofol 200 mg=20 mL, Emulsion, IV, Once, first dose 05/20/14 8:44:00 CDT, stop date 05/20/14 8:44:00 CDT Inactive [place] 05/20/2014 [facility] rocuronium 20 mg=2 mL, Injection, IV, Once, first dose 05/20/14 8:44:00 CDT, stop date 05/20/14 8:44:00 CDT Inactive [place] 05/20/2014 [facility] midazolam 4 mg=4 mL, Injection, IV, Once, first dose 05/20/14 8:34:00 CDT, stop date 05/20/14 8:34:00 CDT Inactive [place] 05/20/2014 [facility] fentaNYL 100 mcg=2 mL, Injection, IV, Once, first dose 05/20/14 8:34:00 CDT, stop date 05/20/14 8:34:00 CDT Inactive [place] 05/20/2014 [facility] ondansetron 4 mg=2 mL, Injection, IV, Once, first dose 05/20/14 8:34:00 CDT, stop date 05/20/14 8:34:00 CDT Inactive [place] 05/20/2014 [facility] LR 1,000 mL 1,000 mL, IV, 100 mL/hr, start date 05/20/14 8:12:00 CDT, For Adults Inactive [place] 05/20/2014 [facility] amlodipine 10 mg oral tablet 10 mg=1 tabs, Oral, Daily, 0 Refill(s) Active 05/19/2014 [facility] calcium (as carbonate)-vitamin D 500 mg-200 intl units oral tablet 1 tabs, Oral, Daily, 0 Refill(s) Active 04/26/2014 [facility] vitamin E 1000 intl units oral capsule 1,000 IntUnit=1 caps, Oral, Daily, 0 Refill(s) Active 04/26/2014 [facility] benzonatate 100 MG Oral Capsule benzonatate 100 mg capsule Take 2 capsules 3 times a day by oral route as needed for 10 days. Active [facility] Hydrochlorothiazide 12.5 MG Oral Capsule hydrochlorothiazide 12.5 mg capsule Active [facility] Lidocaine Hydrochloride 20 MG/ML Mucous Membrane Topical Solution Lidocaine Viscous 2 % mucosal solution Take 15 mL every 3 hours by oral route as needed for 5 days. Active [facility] Losartan Potassium 100 MG Oral Tablet losartan 100 mg tablet TAKE ONE (1) TABLET(S) BY MOUTH ONCE A DAY. Active [facility] Medrol (Valent[place]) 4 mg tablets in a dose pack Medrol ([place]) 4 mg tablets in a dose pack take as directed Active [facility] atorvastatin 10 MG Oral Tablet atorvastatin 10 mg tablet Active [facility] 12 HR Bupropion Hydrochloride 90 MG / Naltrexone hydrochloride 8 MG Extended Release Oral Tablet [Contrave] Contrave 8 mg-90 mg tablet,extended release Active [facility] Diazepam 5 MG Oral Tablet diazepam 5 mg tablet TAKE ONE (1) TABLET(S) BY MOUTH EVERY EIGHT HOURS NEEDED FOR MUSCLE SPASMS. Active [facility] 24 HR Diethylpropion Hydrochloride 75 MG Extended Release Oral Tablet diethylpropion ER 75 mg tablet,extended release TAKE ONE (1) TABLET(S) BY MOUTH MID-MORNING. Active [facility] terconazole 4 MG/ML Vaginal Cream terconazole 0.4 % vaginal cream Active [facility] tramadol hydrochloride 50 MG Oral Tablet tramadol 50 mg tablet TAKE ONE (1) TO TWO (2) TABLET(S) BY MOUTH EVERY SIX HOURS NEEDED FOR PAIN. Active [facility] 168 HR Ethinyl Estradiol 0.74673 MG/HR / norelgestromin 0.54423 MG/HR Transdermal System [Xulane] Xulane 150 mcg-35 mcg/24 hr transdermal patch Active [facility] Amlodipine 5 MG Oral Tablet amlodipine 5 mg tablet Active [facility] Mupirocin 0.02 MG/MG Topical Ointment mupirocin 2 % topical ointment APPLY A SMALL AMOUNT TO THE AFFECTED AREA BY TOPICAL ROUTE 3 TIMES PER DAY x 10 DAYS Active [facility] Brompheniramine Maleate 0.4 MG/ML / Dextromethorphan Hydrobromide 2 MG/ML / Pseudoephedrine Hydrochloride 6 MG/ML Oral Solution [Bromfed DM] Bromfed DM 2 mg-30 mg-10 mg/5 mL syrup Take 10 mL every 8 hours by oral route as needed for cough. Active [facility] 24 HR Bupropion Hydrochloride 150 MG Extended Release Oral Tablet bupropion HCl XL 150 mg 24 hr tablet, extended release TAKE ONE (1) TABLET(S) BY MOUTH EVERY 24 HOURS. Active [facility] Phentermine Hydrochloride 37.5 MG Oral Tablet phentermine 37.5 mg tablet TAKE ONE (1) TABLET(S) BY MOUTH EVERY MORNING. Active [facility] Triamcinolone Acetonide 1 MG/ML Topical Cream triamcinolone acetonide 0.1 % topical cream Active [facility] Acetaminophen 300 MG / Codeine Phosphate 30 MG Oral Tablet acetaminophen 300 mg-codeine 30 mg tablet Active [facility] Amoxicillin 875 MG Oral Tablet amoxicillin 875 mg tablet Take 1 tablet twice a day by oral route with meals for 10 days. Active [facility] Acetaminophen 325 MG / butalbital 50 MG / Caffeine 40 MG Oral Tablet boqrvdwtlh-oifwrfamesrre-mdcegzam 50 mg-325 mg-40 mg tablet Active [facility] Ciprofloxacin 250 MG Oral Tablet ciprofloxacin 250 mg tablet Active [facility] Clobetasol Propionate 0.5 MG/ML Topical Cream clobetasol 0.05 % topical cream Active [facility] 0.3 ML Epinephrine 1 MG/ML Auto-Injector [Epipen] EpiPen 2-[place] 0.3 mg/0.3 mL injection, auto-injector Active [facility] Fluticasone propionate 0.05 MG/ACTUAT Metered Dose Nasal [place] fluticasone 50 mcg/actuation nasal spray,suspension Inhale 2 sprays to each nostrils once a day.. Active [facility] Gildess 20 (21) 1 mg-20 mcg tablet Gildess /20 (21) 1 mg-20 mcg tablet Active [facility] Ibuprofen 600 MG Oral Tablet ibuprofen 600 mg tablet Active [facility] Prednisone 50 MG Oral Tablet prednisone 50 mg tablet Active [facility] Propranolol Hydrochloride 60 MG Oral Tablet propranolol 60 mg tablet Active [facility] Zolpidem tartrate 10 MG Oral Tablet zolpidem 10 mg tablet Active [facility] Allergies, Adverse Reactions, Alerts No Known Medication Allergies Immunizations Immunization Date Given Site Status Last Updated Comments Source Tdap 05/21/2017 completed [facility] influenza, injectable, quadrivalent 04/05/2017 completed [facility] influenza, unspecified formulation 05/05/2016 completed [facility] influenza, seasonal, injectable 05/05/2015 completed [facility] Results Order Name Results Value Reference Range Date Interpretation Comments Source Influenza A negative 04/15/2018 [facility] Influenza B negative 04/15/2018 [facility] RESULT negative 04/15/2018 [facility] SWAB LOCATION Left and Right tonsillar pillars 04/15/2018 [facility] RESULT negative 10/31/2016 [facility] SWAB LOCATION Left and Right tonsillar pillars 10/31/2016 [facility] Influenza A negative 10/31/2016 [facility] Influenza B negative 10/31/2016 [facility] RESULT positive 04/25/2016 [facility] SWAB LOCATION Left and Right tonsillar pillars 04/25/2016 [facility] Pathology Reports No Data Provided for This Section Diagnostic Reports No Data Provided for This Section Consultation Notes No Data Provided for This Section Discharge Summaries No Data Provided for This Section History and Physicals No Data Provided for This Section Vital Signs Vital Sign Value Date Comments Source Diastolic (mm Hg) 78 04/15/2018 [facility] Height 64 04/15/2018 [facility] Systolic (mm Hg) 120 04/15/2018 [facility] Weight 166 04/15/2018 [facility] Height 64 05/21/2017 [facility] Diastolic (mm Hg) 90 10/31/2016 [facility] Height 64 10/31/2016 [facility] Systolic (mm Hg) 142 10/31/2016 [facility] Weight 160 10/31/2016 [facility] Diastolic (mm Hg) 80 07/20/2016 [facility] Height 64 07/20/2016 [facility] Systolic (mm Hg) 130 07/20/2016 [facility] Weight 158 07/20/2016 [facility] Diastolic (mm Hg) 82 04/25/2016 [facility] Height 64 04/25/2016 [facility] Systolic (mm Hg) 124 04/25/2016 [facility] Weight 160 04/25/2016 [facility] Respitory Rate 12 05/20/2014 [facility] Heart Rate 59 05/20/2014 [facility] Systolic (mm Hg) 126 05/20/2014 [facility] Diastolic (mm Hg) 81 05/20/2014 [facility] Respitory Rate 11 05/20/2014 [facility] Systolic (mm Hg) 116 05/20/2014 [facility] Diastolic (mm Hg) 77 05/20/2014 [facility] Heart Rate 58 05/20/2014 [facility] Respitory Rate 15 05/20/2014 [facility] Diastolic (mm Hg) 79 05/20/2014 [facility] Systolic (mm Hg) 123 05/20/2014 [facility] Heart Rate 59 05/20/2014 [facility] Temperature Oral (F) 36.2 Joy 05/20/2014 [facility] Peripheral Pulse Rate 54 05/20/2014 [facility] Temperature Oral (F) 36.5 Joy 05/20/2014 [facility] Weight 71.7 05/19/2014 [facility] Weight 27.32 05/19/2014 [facility] Height 162 cm 05/19/2014 [facility] Encounters Location Location Details Encounter Type Encounter Number Reason For Visit Attending Provider ADM Date DC Date Status Source [facility] Outpatient [id number] Sebastien Iqbalman 04/26/2014 04/26/2014 Discharged [facility] [place] Outpatient [id number] Sebastien Sagastume 05/20/2014 05/20/2014 Discharged [facility] [place] - [facility] - [id number] Catie Amaya, DESIGN AGENT: [address] [place] [address], Ph. [id number] Catie Amaya 04/25/2016 [facility] [place] [facility] - [id number] PARISA TrammellP: [address] [place] [address], Ph. [id number] Na Omalley 07/20/2016 [facility] [place] [facility] - [id number] MARGARETH Limon-C: [address] [place] [address], Ph. [id number] Emily Gonzalez 10/31/2016 [facility] [place] [facility] [id number] MARGARETH Velazco-C: [address], [place] [address], Ph. [phone] [id number] Alen Evansuyen 05/21/2017 [facility] [place] [facility] - [id number] Willian Faye PA-C: [address], [place] [address], Ph. [id number] Willian Faye 04/15/2018 [facility] Procedures Procedure Code Date Perfomer Comments Source Repair of Nasal Septum 82251 [facility] Cholecystectomy [facility] Hysterectomy [facility] Assessment and Plan No Data Provided for This Section Plan of Care No Data Provided for This Section Social History Social History Date Source Smoking Status Never Smoker 04/25/2016 [facility] Family History No Data Provided for This Section Advance Directives No Data Provided for This Section Functional Status No Data Provided for This Section
[2019-04-15] MEDS ORDERED: SODIUM CHLORIDE 0.9% 1000ML 1,000 ML IV STA (09:40)
[2019-04-15] MEDS ORDERED: ONDANSETRON HCL INJ 2MG/ML 2ML 2 MG/ML VIAL IV ONE (10:00)
[2019-04-15] MEDS ORDERED: MORPHINE SULFATE 2 MG/ML SYR 1ML IV ONE ×2 (10:00→11:30)
[2019-04-15 10:12] LABS: BASOPHILS % 0.4 % (0.0-1.0); EOSINOPHILS # (AUTO) 0.1 (0.0-0.4); EOSINOPHILS % 0.8 % (0.0-6.0); HEMATOCRIT 40.1 % (34.2-44.1); HEMOGLOBIN 13.7 g/dL (12.0-16.0); LYMPHOCYTES # (AUTO) 0.7 (1.0-3.2); LYMPHOCYTES % 9.5 % (18.0-39.1); MEAN CORPUSCULAR HEMOGLOBIN 30.4 pg (28-32); MEAN CORPUSCULAR HGB CONC 34.2 g/dL (31-35); MEAN CORPUSCULAR VOLUME 88.9 fL (81-99); MONOCYTES # (AUTO) 0.4 (0.2-0.8); MONOCYTES % 5.6 % (4.4-11.3); NEUTROPHILS # (AUTO) 6.1 (2.1-6.9); NEUTROPHILS % 83.4 % (38.7-80.0); PLATELET COUNT 259 x10e3/uL (140-360); RED BLOOD COUNT 4.51 x10e6/uL (3.6-5.1); RED CELL DISTRIBUTION WIDTH 13.5 % (11.7-14.4)
[2019-04-15 10:14] LABS: BILIRUBIN,URINE NEGATIVE (NEGATIVE); CLARITY,URINE SL CLOUDY (CLEAR); COLOR,URINE YELLOW (YELLOW); KETONES,URINE NEGATIVE (NEGATIVE); LEUKOCYTE ESTERASE ,URINE NEGATIVE (NEGATIVE); NITRITE,URINE NEGATIVE (NEGATIVE); PROTEIN,URINE DIPSTICK TRACE (NEGATIVE); URINE UROBILINOGEN 0.2 mg/dL (0.2 - 1)
[2019-04-15 10:23] LABS: PREGNANCY TEST, URINE NEGATIVE (NEGATIVE)
[2019-04-15 10:25] LABS: AMORPHOUS SEDIMENT,URINE FEW (FEW); BACTERIA,URINE MODERATE /HPF; MUCUS,URINE MODERATE (RARE); WBC,URINE (MAN) 0-5 /HPF (0-5)
[2019-04-15 10:32] LABS: ALANINE AMINOTRANSFERASE 30 IU/L (0-55); ALBUMIN 3.8 g/dL (3.5-5.0); ALBUMIN/GLOBULIN RATIO 1.2 (0.8-2.0); ALKALINE PHOSPHATASE 79 IU/L (40-150); AMYLASE 45 U/L (25-125); ANION GAP 15.1 mmol/L (8-16); BLOOD UREA NITROGEN 15 mg/dL (7-26); BUN/CREATININE RATIO 19 (6-25); CALCIUM 8.9 mg/dL (8.4-10.2); CARBON DIOXIDE 27 mmol/L (22-29); CHLORIDE 99 mmol/L (98-107); CREATININE, SERUM 0.79 mg/dL (0.57-1.11); EST GLOMERULAR FILTRATION RATE > 60 ML/MIN (60-); GLUCOSE 121 mg/dL (74-118); LIPASE 16 U/L (8-78); POTASSIUM 3.1 mmol/L (3.5-5.1); SODIUM 138 mmol/L (136-145)
--- NOTE | 2019-04-15 11:04 | Diagnostic Imaging Report ---
EXAM: CT Abdomen and Pelvis WITHOUT intravenous contrast INDICATION: Abdominal pain COMPARISON: None. TECHNIQUE: Abdomen and pelvis were scanned utilizing a multidetector helical scanner from the lung base to the pubic symphysis without administration of IV contrast. Coronal and sagittal reformations were obtained. IV CONTRAST: None ORAL CONTRAST: Water COMPLICATIONS: None RADIATION DOSE: Total DLP: 317.3 mGy*cm Dose modulation, iterative reconstruction, and/or weight based adjustment of the mA/kV was utilized to reduce the radiation dose to as low as reasonably achievable. FINDINGS: LOWER THORAX: Mild bibasilar dependent subsegmental atelectasis. Mild scattered patchy groundglass opacities at the anterior left lower lobe with two more focal 6 mm nodules (series 3 image 17). HEPATOBILIARY: No focal liver lesion. Status post cholecystectomy. SPLEEN: No splenomegaly. PANCREAS: No focal masses or ductal dilatation. ADRENALS: No adrenal nodules. KIDNEYS/URETERS: No hydronephrosis, stones, or solid mass lesions. PELVIC ORGANS/BLADDER: Unremarkable. PERITONEUM / RETROPERITONEUM: No free air or fluid. LYMPH NODES: No lymphadenopathy. VESSELS: Unremarkable. GI TRACT: No abnormal bowel wall thickening. No bowel obstruction. Normal appendix. BONES AND SOFT TISSUES: No acute osseous injury. No suspicious lytic or blastic lesions. IMPRESSION: Mild scattered patchy groundglass opacities at the anterior left lower lobe with two more focal 6 mm nodules. Findings most likely reflect an inflammatory or early infectious process such as aspiration. However, if the patient is high risk, chest CT is recommended in 12 months to assess for resolution. No acute findings in the abdomen or pelvis. Specifically, no renal calculi or hydronephrosis. Signed by: Yohan Dickey MD on 04/15/2019 11:00 AM
[2019-04-15] MEDS ORDERED: DICYCLOMINE HCL 20 MG/2 ML VIAL IM ONE (11:15)
[2019-04-15] MEDS ORDERED: POTASSIUM CHLORIDE 20 MEQ TAB CR PO ONE (12:00)
== END 2019-04-15 11:49 | disposition home or self-care (01) ==
LOC: ER 09:21
DX: K52.9 Noninfective gastroenteritis and colitis, unspecified (principal); E86.0 Dehydration
CPT/HCPCS: 36415; 74176; 80053; 81001; 81025; 82150; 83690; 85025; 99284; J0500; J2270; J2405; J7030

== ENCOUNTER 2020-08-03 05:25 | Emergency (ER) | payer BC, OTHER ==
[~2020-08-03] VITALS: Ht 162.6 cm; Wt 69.9 kg
== END 2020-08-03 05:49 | disposition home or self-care (01) ==
LOC: ER 05:30
DX: U07.1 COVID-19 (principal); R50.9 Fever, unspecified; R05 Cough; R51.9 Headache, unspecified; I10 Essential (primary) hypertension; E78.5 Hyperlipidemia, unspecified
CPT/HCPCS: 99282

== ENCOUNTER 2022-12-27 17:27 | Emergency (ER) | payer BC, OTHER ==
[~2022-12-27] VITALS: Ht 162.6 cm; Wt 72.6 kg
[2022-12-27] MEDS ORDERED: ONDANSETRON HCL INJ 2MG/ML 2ML 2 MG/ML VIAL IV STA (17:34)
[2022-12-27] MEDS ORDERED: Morphine 4mg INJECTION 4 MG/ML INJ IV STA (17:34)
[2022-12-27] MEDS ORDERED: SODIUM CHLORIDE 0.9% 1000ML 1,000 ML IV STA (17:34)
[2022-12-27 17:58] LABS: BASOPHILS % 0.4 % (0.0-1.0); EOSINOPHILS % 0.3 % (0.0-6.0); HEMOGLOBIN 14.9 g/dL (12.0-16.0); LYMPHOCYTES # (AUTO) 0.7 (1.0-3.2); LYMPHOCYTES % 10.5 % (18.0-39.1); MEAN CORPUSCULAR HEMOGLOBIN 30.2 pg (28-32); MEAN CORPUSCULAR HGB CONC 33.9 g/dL (31-35); MEAN CORPUSCULAR VOLUME 89.2 fL (81-99); MONOCYTES # (AUTO) 0.3 (0.2-0.8); MONOCYTES % 4.3 % (4.4-11.3); NEUTROPHILS # (AUTO) 5.7 (2.1-6.9); NEUTROPHILS % 84.2 % (38.7-80.0); PLATELET COUNT 313 x10e3/uL (140-360); RED BLOOD COUNT 4.93 x10e6/uL (3.6-5.1); RED CELL DISTRIBUTION WIDTH 13.3 % (11.7-14.4)
[2022-12-27 18:10] LABS: CLARITY,URINE CLEAR (CLEAR); COLOR,URINE YELLOW (YELLOW); KETONES,URINE NEGATIVE (NEGATIVE); LEUKOCYTE ESTERASE ,URINE NEGATIVE (NEGATIVE); NITRITE,URINE NEGATIVE (NEGATIVE); PROTEIN,URINE DIPSTICK 1+ (NEGATIVE); URINE UROBILINOGEN 1 mg/dL (0.2 - 1)
[2022-12-27 18:12] LABS: BACTERIA,URINE RARE /HPF; EPITHELIAL CELLS,URINE MODERATE /LPF; RBC,URINE 0-5 /HPF (0-5); WBC,URINE (MAN) 0-5 /HPF (0-5)
[2022-12-27 18:16] LABS: ALBUMIN 4.3 g/dL (3.5-5.0); ALBUMIN/GLOBULIN RATIO 1.3 (0.8-2.0); ANION GAP 16.9 mmol/L (8-16); CREATININE, SERUM 0.91 mg/dL (0.57-1.11)
[2022-12-27 18:19] LABS: POTASSIUM 2.9 mmol/L (3.5-5.1)
[2022-12-27] MEDS ORDERED: POTASSIUM CHLORIDE 20 MEQ TAB CR PO STA (18:20)
[2022-12-27] MEDS ORDERED: IOPAMIDOL 370 MG/ML 100 ML INFUS..BTL INJ ONE (18:27)
[2022-12-27] MEDS ORDERED: KETOROLAC TROMETHAMINE 30 MG/ML VIAL IV ONE (19:30)
[2022-12-27] MEDS ORDERED: DICYCLOMINE HCL 20 MG/2 ML VIAL IM ONE (19:30)
[2022-12-27] MEDS ORDERED: Morphine 4mg INJECTION 4 MG/ML INJ IV ONE (19:45)
[2022-12-27] MEDS ORDERED: ONDANSETRON ODT4 MG PO (19:46)
[2022-12-27] MEDS ORDERED: BENTYL10 MG/1 ML PO (19:46)
[2022-12-27 20:46] VITALS: BP 124/97; PULSE 85; RESP 16; TEMP 98.7; O2SAT 100
== END 2022-12-27 20:25 | disposition home or self-care (01) ==
LOC: ER 17:34
DX: R10.30 Lower abdominal pain, unspecified (principal); R14.0 Abdominal distension (gaseous); R11.2 Nausea with vomiting, unspecified
CPT/HCPCS: 36415; 74177; 80053; 81001; 83690; 85025; 99284; J0500; J1885; J2270; J2405; J7030; Q9967